=== PATIENT | female | born 1955 | race Caucasian/White ===

== ENCOUNTER → 2019-11-17 | Outpatient (CLI) | payer OTHER | END | disposition home or self-care (01) | LOC: RAH 09:17 | PROVIDERS: ATTEND Family Medicine | DX: N60.02 Solitary cyst of left breast (principal); N60.01 Solitary cyst of right breast; R92.8 Other abnormal and inconclusive findings on diagnostic imaging of breast | CPT/HCPCS: 76641; 77065 ==

== ENCOUNTER → 2020-12-03 | Outpatient (CLI) | payer OTHER | END | disposition home or self-care (01) | LOC: RAH 08:31 | PROVIDERS: ATTEND Family Medicine | DX: Z12.31 Encounter for screening mammogram for malignant neoplasm of breast (principal); N64.89 Other specified disorders of breast | CPT/HCPCS: 77067 ==

== ENCOUNTER 2024-07-05 06:04 | Day surgery (SDC) | payer OTHER ==
[2024-07-01 09:21] VITALS: BP 135/76; PULSE 80; RESP 18; TEMP 97.9
[2024-07-01 09:49] LABS: BASOPHILS # (AUTO) 0.21 K/uL (0.00-0.20); BASOPHILS % (AUTO) 2.5 % (0.0-5.0); EOSINOPHILS # (AUTO) 0.26 K/uL (0.00-0.70); EOSINOPHILS % (AUTO) 3.1 % (0.0-8.0); HEMATOCRIT 45.7 % (36-48); IMMATURE GRANULOCYTE ABSOLUTE 0.06 K/uL (0-1); LYMPHOCYTES # (AUTO) 1.2 K/uL (1.0-4.8); LYMPHOCYTES % (AUTO) 14.4 % (21.0-51.0); MEAN CORPUSCULAR HGB CONC 32.6 g/dL (32.0-36.0); MEAN CORPUSCULAR VOLUME 98.3 fL (79-99); MONOCYTES # (AUTO) 0.8 K/uL (0.1-1.0); MONOCYTES % (AUTO) 9.7 % (3.0-13.0); NEUTROPHILS # (AUTO) 5.8 K/uL (1.8-7.7); NEUTROPHILS % (AUTO) 69.6 % (40.0-77.0); PLATELET COUNT (AUTO) 372 K/uL (130-400); RED BLOOD CELL COUNT(AUTO) 4.65 MIL/uL (4.00-5.50); RED CELL DISTRIBUTION WIDTH 15.3 % (11.0-15.5); WHITE BLOOD COUNT (AUTO) 8.4 K/uL (4.8-10.8)
[2024-07-01 09:57] LABS: CREATININE 1.8 mg/dL (0.5-1.0); POTASSIUM 5.5 mmol/L (3.5-5.1)
[2024-07-01 09:59] LABS: INR 0.94 (0.85-1.15); PROTHROMBIN TIME 10.2 SEC (9.6-11.6)
[2024-07-01 10:00] LABS: PARTIAL THROMBOPLASTIN TIME 30.9 SEC (26.3-35.5)
[~2024-07-05] VITALS: Ht 161.3 cm; Wt 54.9 kg
[~2024-07-05 06:04] MED LIST: ACET-2079 PO; ALEN70TA80 PO; AMIO200T68 PO; AMLO-258 PO; APIX5TAB PO; ERGO500093 PO; FOLI1TAB85 PO; METO50TA18 PO; MUPI22OI2 TP; PROC-3 PO; PROP1DRO4 OP; VIT1CAPS47 PO
[2024-07-05] MEDS ORDERED: 0.9%NACL 1000ML 1,000 ML IV ONE (06:16)
[2024-07-05 06:33] LABS: CREATININE 2.3 mg/dL (0.5-1.0); POTASSIUM 5.6 mmol/L (3.5-5.1)
[2024-07-05] MEDS ORDERED: BUPIvacaine/PF 0.25% 30ML VIAL IJ ONE (07:12)
[2024-07-05] MEDS ORDERED: ceFAZolin SODIUM 1 GM VIAL ONE (07:12)
[2024-07-05] MEDS ORDERED: LIDOCAINE HCL 1% MDV 50ML VIAL ONE (07:12)
== END 2024-07-05 07:37 | disposition home or self-care (01) ==
LOC: DAH 06:04
PROVIDERS: ATTEND Student in an Organized Health Care Education/Training Program
DX: Z45.02 Encounter for adjustment and management of automatic implantable cardiac defibrillator (principal); I42.2 Other hypertrophic cardiomyopathy; I48.0 Paroxysmal atrial fibrillation; I10 Essential (primary) hypertension; E78.5 Hyperlipidemia, unspecified; Z79.01 Long term (current) use of anticoagulants; Z79.899 Other long term (current) drug therapy; Z53.8 Procedure and treatment not carried out for other reasons
CPT/HCPCS: 93005; 80048 ×2; 85025; 85610; 85730; 36415 ×2; J7030; J0690; J3490; J0665

== ENCOUNTER 2024-07-05 07:44 | Inpatient (IN) | payer OTHER ==
[2024-07-05] VITALS (7 sets, daily range): BP systolic 91–102; BP diastolic 43–51; PULSE 60–67; RESP 18; TEMP 97.8–98.5; O2SAT 91–98
[~2024-07-05] VITALS: Ht 160 cm; Wt 55.5 kg
[2024-07-05 08:26] LABS: BASOPHILS # (AUTO) 0.09 K/uL (0.00-0.20); BASOPHILS % (AUTO) 0.6 % (0.0-5.0); EOSINOPHILS # (AUTO) 0.19 K/uL (0.00-0.70); EOSINOPHILS % (AUTO) 1.2 % (0.0-8.0); HEMATOCRIT 40.3 % (36-48); IMMATURE GRANULOCYTE ABSOLUTE 0.09 K/uL (0-1); LYMPHOCYTES # (AUTO) 0.8 K/uL (1.0-4.8); LYMPHOCYTES % (AUTO) 5.1 % (21.0-51.0); MEAN CORPUSCULAR VOLUME 94.2 fL (79-99); MONOCYTES % (AUTO) 6.7 % (3.0-13.0); NEUTROPHILS # (AUTO) 13.1 K/uL (1.8-7.7); NEUTROPHILS % (AUTO) 85.8 % (40.0-77.0); PLATELET COUNT (AUTO) 328 K/uL (130-400); RED BLOOD CELL COUNT(AUTO) 4.28 MIL/uL (4.00-5.50); RED CELL DISTRIBUTION WIDTH 15.1 % (11.0-15.5); WHITE BLOOD COUNT (AUTO) 15.2 K/uL (4.8-10.8)
[2024-07-05 08:28] LABS: SODIUM,URINE RANDOM 21 mmol/l (40-220)
[2024-07-05 08:29] LABS: CREATININE 2.2 mg/dL (0.5-1.0); POTASSIUM 5.4 mmol/L (3.5-5.1)
[2024-07-05] MEDS: kayEXALate 15GM/60ML PO NR (08:42)
[2024-07-05] MEDS: 0.9%NACL 1000ML 1,000 ML IV ONE (08:43)
[2024-07-05 08:45] LABS: APPEARANCE,URINE CLEAR (CLEAR); BILIRUBIN,URINE NEGATIVE (NEGATIVE); COLOR,URINE LIGHT-YELLOW (YELLOW); GLUCOSE, URINE (UA) NEGATIVE (NEGATIVE); KETONES,URINE NEGATIVE (NEGATIVE); LEUKOCYTE ESTERASE ,URINE NEGATIVE Leu/uL (NEGATIVE); NITRATE,URINE NEGATIVE (NEGATIVE); OCCULT BLOOD,URINE NEGATIVE (NEGATIVE); PH,URINE 6.5 (5.0-8.0); PROTEIN,URINE 30 mg/dL (NEGATIVE); RBC,URINE 0-1 /HPF (0-1); SQUAMOUS EPITHELIAL CELL,UR RARE /HPF (0-2); UROBILINOGEN,URINE 0.2 mg/dL (0.2-1.0); WBC,URINE 0-1 /HPF (0-1)
[2024-07-05] MEDS: INSULIN humuLIN R 100 UNIT/ML 3ML IV ONE (08:46)
[2024-07-05] MEDS: DEXTROSE 50%-WATER 50 ML DISP.SYRIN IV ONE (08:51)
[2024-07-05] MEDS: ALBUTEROL 0.083% 2.5 MG/3 ML INH IH SCH (08:58)
[2024-07-05] MEDS ORDERED: DEXTROSE 50%-WATER 25 GM/50 ML VIAL IV ONE (09:00)
[2024-07-05] MEDS ORDERED: ondanSETRON 4MG INJ IVP PRN (12:30)
[2024-07-05] MEDS: ondanSETRON 4MG INJ IVP ONE (12:37)
[2024-07-05] MEDS: 0.9%NACL 1000ML 1,000 ML IV SCH (16:00)
[2024-07-05] MEDS ORDERED: Prochlorperazine Maleate 10 MG PO PRN (16:00)
[2024-07-05] MEDS ORDERED: ARTIFICAL TEARS SOL 15 ML OP PRN (16:00)
[2024-07-05 19:38] LABS: APPEARANCE,URINE CLEAR (CLEAR); BILIRUBIN,URINE NEGATIVE (NEGATIVE); COLOR,URINE YELLOW (YELLOW); GLUCOSE, URINE (UA) NEGATIVE (NEGATIVE); KETONES,URINE NEGATIVE (NEGATIVE); LEUKOCYTE ESTERASE ,URINE 25 Leu/uL (NEGATIVE); NITRATE,URINE NEGATIVE (NEGATIVE); OCCULT BLOOD,URINE NEGATIVE (NEGATIVE); PROTEIN,URINE 30 mg/dL (NEGATIVE); UROBILINOGEN,URINE 0.2 mg/dL (0.2-1.0)
[2024-07-05 19:39] LABS: ADD UA MICROSCOPIC YES
[2024-07-05 19:41] LABS: CHLORIDE,URINE RANDOM 34 mmol/L (110-250); CREATININE,URINE RANDOM 189.47 mg/dL (30-135); POTASSIUM,URINE RANDOM 40 mmol/L (25-125); SODIUM,URINE RANDOM 47 mmol/l (40-220)
[2024-07-05 19:51] LABS: BACTERIA,URINE RARE /HPF (None Seen); MUCUS,URINE RARE LPF (None Seen); OTHER CASTS, URINE 1 /LPF (None Seen); SQUAMOUS EPITHELIAL CELL,UR FEW /HPF (0-2)
[2024-07-05] MEDS: APIXaban 5 MG TABLET PO SCH (19:59)
[2024-07-05] MEDS: MUPIROCIN OINTMENT 22 GM TUBE TP SCH (19:59)
[2024-07-05] MEDS: AMIOdarone 200 MG TABLET PO SCH (19:59)
[2024-07-05] MEDS: 0.9% NACL 500ML IV.SOLN 500 ML IV SCH (22:08)
[2024-07-05] MEDS: cefTRIAXone 1G VIAL IVPB SCH (22:09)
[2024-07-05] MEDS: traMADol HCL 50 MG TABLET PO ONE (22:09)
[2024-07-05] MEDS: DiphenhydrAMINE HCL 25 MG CAPSULE PO ONE (22:59)
[2024-07-06] VITALS (17 sets, daily range): BP systolic 103–133; BP diastolic 49–60; PULSE 60–83; RESP 18–22; TEMP 97.5–98.6; O2SAT 92–96
[2024-07-06 03:33] LABS: BASOPHILS # (AUTO) 0.05 K/uL (0.00-0.20); BASOPHILS % (AUTO) 0.5 % (0.0-5.0); EOSINOPHILS # (AUTO) 0.12 K/uL (0.00-0.70); EOSINOPHILS % (AUTO) 1.1 % (0.0-8.0); HEMATOCRIT 32.9 % (36-48); IMMATURE GRANULOCYTE ABSOLUTE 0.05 K/uL (0-1); LYMPHOCYTES # (AUTO) 0.9 K/uL (1.0-4.8); LYMPHOCYTES % (AUTO) 8.7 % (21.0-51.0); MEAN CORPUSCULAR HEMOGLOBIN 31.8 pg (27.0-33.0); MEAN CORPUSCULAR HGB CONC 33.1 g/dL (32.0-36.0); MEAN CORPUSCULAR VOLUME 95.9 fL (79-99); MONOCYTES # (AUTO) 1.1 K/uL (0.1-1.0); MONOCYTES % (AUTO) 10.4 % (3.0-13.0); NEUTROPHILS # (AUTO) 8.4 K/uL (1.8-7.7); NEUTROPHILS % (AUTO) 78.8 % (40.0-77.0); PLATELET COUNT (AUTO) 251 K/uL (130-400); RED BLOOD CELL COUNT(AUTO) 3.43 MIL/uL (4.00-5.50); RED CELL DISTRIBUTION WIDTH 15.4 % (11.0-15.5); WHITE BLOOD COUNT (AUTO) 10.6 K/uL (4.8-10.8)
[2024-07-06 03:35] LABS: ABG BASE EXCESS -5.7 mmol/L (-2.0-3.0); ABG HCO3 19.2 mmol/L (21.0-28.0); ABG PCO2 35 mmHg (32-45); ABG PH 7.355 (7.350-7.450); CARBON MONOXIDE 0.3 % (0.5-1.5); DEVICE COMMENT RR; HHb 11.9; PO2, ARTERIAL BG 53.4 mmHg (83.0-108.0); VENT MODE, BG VENTI MASK (ROOM AIR)
[2024-07-06 03:46] LABS: ALBUMIN 2.7 g/dL (3.5-5.0); BILIRUBIN,TOTAL 0.2 mg/dL (0.2-1.0); CREATININE 1.7 mg/dL (0.5-1.0); MAGNESIUM 1.6 mg/dL (1.80-2.40); PHOSPHORUS 3.3 mg/dL (2.5-4.9); POTASSIUM 3.6 mmol/L (3.5-5.1); TOTAL PROTEIN, SERUM 5.9 g/dL (6.0-8.3); URIC ACID 6.9 mg/dL (2.6-7.2)
[2024-07-06] MEDS: IpraTROPium/alBUTERol SULFATE 3 ML SOLUTION IH PRN (04:00)
[2024-07-06] MEDS ORDERED: traMADol HCL 50 MG TABLET PO ONE (04:00)
[2024-07-06] MEDS: morPHINE 2 MG SYG IVP ONE (04:00)
[2024-07-06] MEDS: NITROGLYCERIN 0.4 MG SL TAB SL PRN (04:01)
[2024-07-06] MEDS: guaiFENesin-DM 200/20MG 10ML PO PRN (04:01)
[2024-07-06] MEDS: MAGNESIUM 2GM PREMIX 50ML 50 ML IV SCH (04:02)
[2024-07-06] MEDS: Vitamin B Complex/Vit C/Folic Acid PO SCH (10:23)
[2024-07-06] MEDS: MUPIROCIN OINTMENT 22 GM TUBE TP SCH (10:27)
[2024-07-07] VITALS (13 sets, daily range): BP systolic 111–132; BP diastolic 49–66; PULSE 65–109; RESP 18–22; TEMP 97.4–98.7; O2SAT 88–93
[2024-07-07 05:15] LABS: HEMATOCRIT 31.9 % (36-48); MEAN CORPUSCULAR HGB CONC 32.9 g/dL (32.0-36.0); MEAN CORPUSCULAR VOLUME 97.3 fL (79-99); PLATELET COUNT (AUTO) 223 K/uL (130-400); RED BLOOD CELL COUNT(AUTO) 3.28 MIL/uL (4.00-5.50); RED CELL DISTRIBUTION WIDTH 15.2 % (11.0-15.5); WHITE BLOOD COUNT (AUTO) 18.9 K/uL (4.8-10.8)
[2024-07-07 05:46] LABS: ALBUMIN 2.5 g/dL (3.5-5.0); BILIRUBIN,TOTAL 0.4 mg/dL (0.2-1.0); CREATININE 1.6 mg/dL (0.5-1.0); PHOSPHORUS 3.2 mg/dL (2.5-4.9); POTASSIUM 3.9 mmol/L (3.5-5.1); THYROID STIMULATING HORMONE 0.82 uIU/mL (0.36-3.74); URIC ACID 6.5 mg/dL (2.6-7.2)
[2024-07-07 06:05] LABS: LYMPHOCYTES % (MANUAL) 6 % (22-44); MAN.DIFF COMMENT-IMPRESSION MANUAL DIFFERENTIAL; MONOCYTES % (MANUAL) 7 % (2-9); PLATELET MORPHOLOGY COMMENT ADEQUATE; SEGMENTED NEUTROPHILS % 87 % (40-70); TOTAL CELLS COUNTED 100
[2024-07-07 10:19] LABS: ABG HCO3 22.1 mmol/L (21.0-28.0); ABG OXYGEN SATURATION 90.4 % (94.0-98.0); ABG PCO2 32 mmHg (32-45); ABG PH 7.459 (7.350-7.450); CARBON MONOXIDE 0.5 % (0.5-1.5); HHb 9.5; VENT MODE, BG 5L NC (ROOM AIR)
[2024-07-07] MEDS ORDERED: RENAL DOSE IV PRN (12:30)
[2024-07-07 13:02] LABS: RAPID GROUP A STREP negative (NEGATIVE)
[2024-07-07 13:06] LABS: COVID19 (SARS ANTIGEN RAPID) PRESUMPTIVE NEGATIVE (NEGATIVE); INFLUENZA TYPE A Negative For Type A (NEGATIVE); INFLUENZA TYPE B Negative For Type B (NEGATIVE)
[2024-07-07] MEDS: CEFTRIAXONE 2GM VIAL IVPB SCH (13:10)
[2024-07-07] MEDS: DOXYCYCLINE 100MG+NS 250ML 250 ML IV SCH (13:11)
[2024-07-07] MEDS: furoSEMIDE 20MG VIAL IV SCH (13:14)
[2024-07-07] MEDS ORDERED: SODIUM BICARBONATE 650 MG TAB PO SCH (14:00)
[2024-07-07] MEDS: SODIUM CHLORIDE 3% FOR INHALATION 4 ML/AMP VIAL.NEB IH ONE ×3 (14:43→22:44)
[2024-07-07] MEDS ORDERED: traMADol HCL 50 MG TABLET PO SCH (17:30)
[2024-07-07] MEDS: acetaMINOPHEN WITH coDEINE 1 TAB TAB PO PRN (18:02)
[2024-07-07 18:42] LABS: HEPATITIS A IGM ANTIBODY Non-Reactive (Nonreactive); HEPATITIS B CORE IGM ANTIBODY Non-Reactive (Negative); HEPATITIS B SURFACE ANTIGEN Non-Reactive (Nonreactive); HEPATITIS C ANTIBODY Non-Reactive (Nonreactive)
[2024-07-07] MEDS: acetaMINOPHEN 325 MG TAB PO PRN (21:14)
[2024-07-07] MEDS: metRONIDazole 500MG/100ML BAG 100 ML IVPB SCH (23:47)
[2024-07-08] VITALS (10 sets, daily range): BP systolic 97–126; BP diastolic 49–63; PULSE 66–78; RESP 16–20; TEMP 97.9–98.4; O2SAT 92–93
[2024-07-08 05:29] LABS: HEMATOCRIT 29.8 % (36-48); MEAN CORPUSCULAR HEMOGLOBIN 32.1 pg (27.0-33.0); MEAN CORPUSCULAR HGB CONC 33.6 g/dL (32.0-36.0); MEAN CORPUSCULAR VOLUME 95.5 fL (79-99); RED BLOOD CELL COUNT(AUTO) 3.12 MIL/uL (4.00-5.50); RED CELL DISTRIBUTION WIDTH 15.2 % (11.0-15.5); WHITE BLOOD COUNT (AUTO) 17.2 K/uL (4.8-10.8)
[2024-07-08 06:22] LABS: CREATININE 1.5 mg/dL (0.5-1.0); POTASSIUM 3.6 mmol/L (3.5-5.1)
[2024-07-08] MEDS: NICOTINE 14 MG/ 24 HR PATCH TD SCH (08:33)
[2024-07-08] MEDS: monteLUKAST sodIUM 10 MG TAB PO SCH (08:33)
[2024-07-08] MEDS: furoSEMIDE 40MG VIAL IV SCH (08:34)
[2024-07-08 10:33] LABS: MAGNESIUM 1.6 mg/dL (1.80-2.40); PHOSPHORUS 3.4 mg/dL (2.5-4.9)
[2024-07-08] MEDS: PoTASSium chloRIDE 20MEQ ER 20 MEQ ERTAB PO ONE (14:42)
[2024-07-09] VITALS (14 sets, daily range): BP systolic 107–136; BP diastolic 52–67; PULSE 63–74; RESP 16–22; TEMP 98–98.8; O2SAT 92–94
[2024-07-09 04:34] LABS: HEMATOCRIT 28.9 % (36-48); MEAN CORPUSCULAR HEMOGLOBIN 31.8 pg (27.0-33.0); MEAN CORPUSCULAR HGB CONC 34.3 g/dL (32.0-36.0); MEAN CORPUSCULAR VOLUME 92.9 fL (79-99); RED BLOOD CELL COUNT(AUTO) 3.11 MIL/uL (4.00-5.50); RED CELL DISTRIBUTION WIDTH 14.8 % (11.0-15.5); WHITE BLOOD COUNT (AUTO) 12.7 K/uL (4.8-10.8)
[2024-07-09 05:12] LABS: ALBUMIN 2.3 g/dL (3.5-5.0); BILIRUBIN,TOTAL 0.4 mg/dL (0.2-1.0); CREATININE 1.6 mg/dL (0.5-1.0); MAGNESIUM 1.8 mg/dL (1.80-2.40); POTASSIUM 3.6 mmol/L (3.5-5.1)
[2024-07-09] MEDS: levoFLOXacin 250 MG/D5W 50ML 50 ML IVPB SCH (14:37)
[2024-07-09] MEDS: IpraTROPium/alBUTERol SULFATE 3 ML SOLUTION IH SCH (18:45)
[2024-07-09] MEDS ORDERED: IpraTROPium 0.5 MG/2.5 ML INH IH PRN (23:00)
[2024-07-09] MEDS: DOXYCYCLINE 100MG+NS 250ML 0 ML IV ONE (23:12)
[2024-07-10] VITALS (9 sets, daily range): BP systolic 120–142; BP diastolic 60–81; PULSE 63–77; RESP 16–20; TEMP 97.9–98.7; O2SAT 94–95
[2024-07-10 04:11] LABS: HEMATOCRIT 32.6 % (36-48); MEAN CORPUSCULAR HEMOGLOBIN 31.7 pg (27.0-33.0); MEAN CORPUSCULAR HGB CONC 33.7 g/dL (32.0-36.0); MEAN CORPUSCULAR VOLUME 93.9 fL (79-99); PLATELET COUNT (AUTO) 315 K/uL (130-400); RED BLOOD CELL COUNT(AUTO) 3.47 MIL/uL (4.00-5.50); WHITE BLOOD COUNT (AUTO) 10.1 K/uL (4.8-10.8)
[2024-07-10 04:27] LABS: ALBUMIN 2.5 g/dL (3.5-5.0); BILIRUBIN,TOTAL 0.5 mg/dL (0.2-1.0); CREATININE 1.7 mg/dL (0.5-1.0); MAGNESIUM 2.1 mg/dL (1.80-2.40); POTASSIUM 3.5 mmol/L (3.5-5.1); TOTAL PROTEIN, SERUM 6.6 g/dL (6.0-8.3)
[2024-07-10 05:11] LABS: BASOPHILS % (MANUAL) 1 % (0-2); EOSINOPHILS % (MANUAL) 3 % (1-6); LYMPHOCYTES % (MANUAL) 14 % (22-44); MAN.DIFF COMMENT-IMPRESSION MANUAL DIFFERENTIAL; MONOCYTES % (MANUAL) 16 % (2-9); PLATELET MORPHOLOGY COMMENT ADEQUATE; SEGMENTED NEUTROPHILS % 66 % (40-70); TOTAL CELLS COUNTED 100; WBC MORPHOLOGY SMUDGE CELLS 1+
[2024-07-10] MEDS: FOLic ACID 1 MG TABLET PO SCH (10:12)
[2024-07-10] MEDS: THIAMINE HCL 100 MG/ML 2ML VIAL IVP SCH (10:13)
[2024-07-10] MEDS: furoSEMIDE 40MG VIAL IV SCH (22:00)
[2024-07-11] VITALS (10 sets, daily range): BP systolic 131–154; BP diastolic 63–82; PULSE 56–88; RESP 16–20; TEMP 97.7–98.9; O2SAT 94–96
[2024-07-11 03:52] LABS: BASOPHILS # (AUTO) 0.11 K/uL (0.00-0.20); EOSINOPHILS # (AUTO) 0.41 K/uL (0.00-0.70); EOSINOPHILS % (AUTO) 3.6 % (0.0-8.0); HEMATOCRIT 34.6 % (36-48); IMMATURE GRANULOCYTE ABSOLUTE 0.14 K/uL (0-1); LYMPHOCYTES % (AUTO) 8.9 % (21.0-51.0); MEAN CORPUSCULAR HEMOGLOBIN 31.4 pg (27.0-33.0); MEAN CORPUSCULAR HGB CONC 33.8 g/dL (32.0-36.0); MEAN CORPUSCULAR VOLUME 92.8 fL (79-99); MONOCYTES # (AUTO) 1.5 K/uL (0.1-1.0); MONOCYTES % (AUTO) 13.2 % (3.0-13.0); NEUTROPHILS # (AUTO) 8.1 K/uL (1.8-7.7); NEUTROPHILS % (AUTO) 72.1 % (40.0-77.0); PLATELET COUNT (AUTO) 360 K/uL (130-400); RED BLOOD CELL COUNT(AUTO) 3.73 MIL/uL (4.00-5.50); RED CELL DISTRIBUTION WIDTH 14.8 % (11.0-15.5); WHITE BLOOD COUNT (AUTO) 11.3 K/uL (4.8-10.8)
[2024-07-11 04:18] LABS: ALBUMIN 2.6 g/dL (3.5-5.0); BILIRUBIN,TOTAL 0.4 mg/dL (0.2-1.0); CREATININE 1.7 mg/dL (0.5-1.0); MAGNESIUM 1.6 mg/dL (1.80-2.40); POTASSIUM 3.4 mmol/L (3.5-5.1); TOTAL PROTEIN, SERUM 6.8 g/dL (6.0-8.3)
[2024-07-11] MEDS ORDERED: PoTASSium chloRIDE 20MEQ ER 20 MEQ ERTAB PO PRN (13:00)
[2024-07-11] MEDS ORDERED: PoTASSium chl 10% ELIXIR 20MEQ 20 MEQ/15 ML UDCUP PO PRN (13:00)
[2024-07-11] MEDS ORDERED: PoTASSium chloRIDE 20MEQ/100ML 100 ML IV PRN (13:00)
[2024-07-11] MEDS: Solu-medROL 40MG VIAL IVP SCH (15:47)
[2024-07-11] MEDS: furoSEMIDE 20MG VIAL IV SCH (22:27)
[2024-07-12] VITALS (13 sets, daily range): BP systolic 117–147; BP diastolic 60–87; PULSE 63–88; RESP 18–24; TEMP 97.2–98.6; O2SAT 94–97
[2024-07-12 03:38] LABS: BASOPHILS # (AUTO) 0.06 K/uL (0.00-0.20); BASOPHILS % (AUTO) 0.5 % (0.0-5.0); EOSINOPHILS # (AUTO) 0.01 K/uL (0.00-0.70); EOSINOPHILS % (AUTO) 0.1 % (0.0-8.0); HEMATOCRIT 35.5 % (36-48); IMMATURE GRANULOCYTE ABSOLUTE 0.25 K/uL (0-1); LYMPHOCYTES # (AUTO) 0.6 K/uL (1.0-4.8); LYMPHOCYTES % (AUTO) 5.3 % (21.0-51.0); MEAN CORPUSCULAR HEMOGLOBIN 31.4 pg (27.0-33.0); MEAN CORPUSCULAR HGB CONC 34.1 g/dL (32.0-36.0); MEAN CORPUSCULAR VOLUME 92.2 fL (79-99); MONOCYTES # (AUTO) 0.2 K/uL (0.1-1.0); NEUTROPHILS # (AUTO) 10.8 K/uL (1.8-7.7); PLATELET COUNT (AUTO) 399 K/uL (130-400); RED BLOOD CELL COUNT(AUTO) 3.85 MIL/uL (4.00-5.50)
[2024-07-12 03:55] LABS: ALANINE AMINOTRANSFERASE 36 U/L (12-78); ALBUMIN 2.7 g/dL (3.5-5.0); ASPARTATE AMINOTRANSFERASE 22 U/L (10-37); BILIRUBIN,TOTAL 0.4 mg/dL (0.2-1.0); CARBON DIOXIDE 31 mmol/L (21-32); CHLORIDE 95 mmol/L (101-111); CREATININE 2.1 mg/dL (0.5-1.0); GLOMERULAR FILTR. RATE CALC 25 mL/min (>90); GLUCOSE,RANDOM 139 mg/dL (70-105); PHOSPHORUS 5.4 mg/dL (2.5-4.9); POTASSIUM 4.2 mmol/L (3.5-5.1); SODIUM SERUM 134 mmol/L (136-145); UREA NITROGEN, BLOOD 38 mg/dL (7-18)
[2024-07-12 03:58] LABS: AMMONIA < 10 umol/L (11-32)
[2024-07-12] MEDS: IpraTROPium 0.5 MG/2.5 ML INH IH SCH (13:23)
[2024-07-12] MEDS: Solu-medROL 40MG VIAL IVP SCH (20:57)
[2024-07-13] VITALS (17 sets, daily range): BP systolic 102–153; BP diastolic 55–68; PULSE 44–101; RESP 16–20; TEMP 97.8–98.8; O2SAT 93–96
[2024-07-13] MEDS: LORazepam 2 MG/ML 1 ML VIAL IVP STA (00:45)
[2024-07-13] MEDS ORDERED: ALPRAZolam 0.5 MG TABLET PO ONE (01:00)
[2024-07-13 01:02] LABS: ABG BASE EXCESS 3.7 mmol/L (-2.0-3.0); ABG HCO3 21.3 mmol/L (21.0-28.0); ABG OXYGEN SATURATION 96.8 % (94.0-98.0); ABG PCO2 18 mmHg (32-45); ABG PH > 7.700 (7.350-7.450); CARBON MONOXIDE 0.4 % (0.5-1.5); DEVICE COMMENT LR RN; HHb 3.2; PO2, ARTERIAL BG 73.2 mmHg (83.0-108.0); VENT MODE, BG RA (ROOM AIR)
[2024-07-13] MEDS: LORazepam 2 MG/ML 1 ML VIAL ONE (01:11)
[2024-07-13] MEDS ORDERED: NICOTINE 14 MG/ 24 HR PATCH TD SCH ×2 (01:30)
[2024-07-13] MEDS: furoSEMIDE 20MG VIAL IV ONE (02:09)
[2024-07-13 03:41] LABS: BASOPHILS # (AUTO) 0.02 K/uL (0.00-0.20); BASOPHILS % (AUTO) 0.1 % (0.0-5.0); HEMATOCRIT 33.7 % (36-48); IMMATURE GRANULOCYTE ABSOLUTE 0.64 K/uL (0-1); LYMPHOCYTES # (AUTO) 0.6 K/uL (1.0-4.8); LYMPHOCYTES % (AUTO) 3.3 % (21.0-51.0); MEAN CORPUSCULAR HEMOGLOBIN 31.8 pg (27.0-33.0); MEAN CORPUSCULAR HGB CONC 33.5 g/dL (32.0-36.0); MEAN CORPUSCULAR VOLUME 94.9 fL (79-99); MONOCYTES # (AUTO) 0.9 K/uL (0.1-1.0); MONOCYTES % (AUTO) 4.8 % (3.0-13.0); NEUTROPHILS # (AUTO) 15.6 K/uL (1.8-7.7); NEUTROPHILS % (AUTO) 88.2 % (40.0-77.0); PLATELET COUNT (AUTO) 415 K/uL (130-400); RED BLOOD CELL COUNT(AUTO) 3.55 MIL/uL (4.00-5.50); RED CELL DISTRIBUTION WIDTH 14.8 % (11.0-15.5); WHITE BLOOD COUNT (AUTO) 17.7 K/uL (4.8-10.8)
[2024-07-13 04:05] LABS: ALBUMIN 2.8 g/dL (3.5-5.0); BILIRUBIN,TOTAL 0.4 mg/dL (0.2-1.0); MAGNESIUM 2.1 mg/dL (1.80-2.40); POTASSIUM 3.5 mmol/L (3.5-5.1); TOTAL PROTEIN, SERUM 6.6 g/dL (6.0-8.3)
[2024-07-13 13:16] LABS: ABG BASE EXCESS 0.8 mmol/L (-2.0-3.0); ABG HCO3 24.5 mmol/L (21.0-28.0); ABG PCO2 36 mmHg (32-45); ABG PH 7.452 (7.350-7.450); CARBON MONOXIDE 0.3 % (0.5-1.5); DEVICE COMMENT RB SJ RN; PO2, ARTERIAL BG 66.3 mmHg (83.0-108.0); VENT MODE, BG RA (ROOM AIR)
[2024-07-13] MEDS: LACTATED RINGERS 1000ML 1,000 ML IV SCH (13:30)
[2024-07-13] MEDS: diazePAM 5 MG TAB PO SCH (23:24)
[2024-07-14] VITALS (15 sets, daily range): BP systolic 119–139; BP diastolic 62–78; PULSE 60–78; RESP 16–22; TEMP 97.8–98.8; O2SAT 95–98
[2024-07-14] MEDS: diazePAM 5 MG TAB PO PRN (02:54)
[2024-07-14 03:55] LABS: BASOPHILS # (AUTO) 0.04 K/uL (0.00-0.20); BASOPHILS % (AUTO) 0.2 % (0.0-5.0); HEMATOCRIT 32.5 % (36-48); IMMATURE GRANULOCYTE ABSOLUTE 0.73 K/uL (0-1); LYMPHOCYTES % (AUTO) 5.2 % (21.0-51.0); MEAN CORPUSCULAR HEMOGLOBIN 31.6 pg (27.0-33.0); MEAN CORPUSCULAR HGB CONC 33.5 g/dL (32.0-36.0); MEAN CORPUSCULAR VOLUME 94.2 fL (79-99); MONOCYTES # (AUTO) 1.6 K/uL (0.1-1.0); NEUTROPHILS # (AUTO) 16.6 K/uL (1.8-7.7); NEUTROPHILS % (AUTO) 82.9 % (40.0-77.0); PLATELET COUNT (AUTO) 418 K/uL (130-400); RED BLOOD CELL COUNT(AUTO) 3.45 MIL/uL (4.00-5.50); RED CELL DISTRIBUTION WIDTH 15.1 % (11.0-15.5)
[2024-07-14 04:07] LABS: CREATININE 2.4 mg/dL (0.5-1.0)
[2024-07-14] MEDS: LACTULOSE 20 GM/30 ML UDCUP PO PRN (11:57)
[2024-07-15] VITALS (13 sets, daily range): BP systolic 122–151; BP diastolic 57–70; PULSE 63–94; RESP 18–20; TEMP 97.3–98.6; O2SAT 94–97
[2024-07-15 05:08] LABS: BASOPHILS # (AUTO) 0.07 K/uL (0.00-0.20); BASOPHILS % (AUTO) 0.3 % (0.0-5.0); HEMATOCRIT 32.4 % (36-48); IMMATURE GRANULOCYTE ABSOLUTE 0.89 K/uL (0-1); LYMPHOCYTES % (AUTO) 4.5 % (21.0-51.0); MEAN CORPUSCULAR HEMOGLOBIN 31.1 pg (27.0-33.0); MEAN CORPUSCULAR HGB CONC 33.3 g/dL (32.0-36.0); MEAN CORPUSCULAR VOLUME 93.4 fL (79-99); MONOCYTES # (AUTO) 1.9 K/uL (0.1-1.0); NEUTROPHILS # (AUTO) 17.7 K/uL (1.8-7.7); NEUTROPHILS % (AUTO) 82.1 % (40.0-77.0); PLATELET COUNT (AUTO) 463 K/uL (130-400); RED BLOOD CELL COUNT(AUTO) 3.47 MIL/uL (4.00-5.50); RED CELL DISTRIBUTION WIDTH 15.1 % (11.0-15.5); WHITE BLOOD COUNT (AUTO) 21.5 K/uL (4.8-10.8)
[2024-07-15 05:33] LABS: MAGNESIUM 2.1 mg/dL (1.80-2.40); PHOSPHORUS 3.8 mg/dL (2.5-4.9); POTASSIUM 4.1 mmol/L (3.5-5.1)
[2024-07-15] MEDS: 0.9%NACL 1000ML 1,000 ML IV SCH (12:16)
[2024-07-15] MEDS: DOXYCYCLINE HYCLATE 100 MG TABLET PO SCH (12:16)
[2024-07-15] MEDS ORDERED: PHARMACY COMMUNICATION MISC SCH (16:30)
[2024-07-15 17:30] LABS: ABG BASE EXCESS 0.9 mmol/L (-2.0-3.0); ABG OXYGEN SATURATION 95.7 % (94.0-98.0); ABG PCO2 34 mmHg (32-45); ABG PH 7.466 (7.350-7.450); DEVICE COMMENT RN MARTA; PO2, ARTERIAL BG 73.5 mmHg (83.0-108.0)
[2024-07-15] MEDS: APIXaban 2.5 MG TABLET PO SCH (22:50)
[2024-07-16] VITALS (13 sets, daily range): BP systolic 130–166; BP diastolic 61–81; PULSE 62–72; RESP 18–22; TEMP 97.5–98.4; O2SAT 94–98
[2024-07-16 04:03] LABS: BASOPHILS # (AUTO) 0.12 K/uL (0.00-0.20); BASOPHILS % (AUTO) 0.7 % (0.0-5.0); EOSINOPHILS # (AUTO) 0.18 K/uL (0.00-0.70); HEMATOCRIT 36.7 % (36-48); IMMATURE GRANULOCYTE ABSOLUTE 1.01 K/uL (0-1); LYMPHOCYTES # (AUTO) 1.9 K/uL (1.0-4.8); LYMPHOCYTES % (AUTO) 10.7 % (21.0-51.0); MEAN CORPUSCULAR HEMOGLOBIN 31.5 pg (27.0-33.0); MEAN CORPUSCULAR HGB CONC 33.5 g/dL (32.0-36.0); MEAN CORPUSCULAR VOLUME 94.1 fL (79-99); MONOCYTES % (AUTO) 11.1 % (3.0-13.0); NEUTROPHILS # (AUTO) 12.8 K/uL (1.8-7.7); NEUTROPHILS % (AUTO) 70.9 % (40.0-77.0); PLATELET COUNT (AUTO) 477 K/uL (130-400); RED CELL DISTRIBUTION WIDTH 15.2 % (11.0-15.5); WHITE BLOOD COUNT (AUTO) 18.1 K/uL (4.8-10.8)
[2024-07-16 04:15] LABS: CREATININE 1.6 mg/dL (0.5-1.0); POTASSIUM 4.6 mmol/L (3.5-5.1)
[2024-07-17] VITALS (7 sets, daily range): BP systolic 130–150; BP diastolic 62–82; PULSE 62–69; RESP 18–20; TEMP 97.6–98.8; O2SAT 95–98
[2024-07-17 03:55] LABS: BASOPHILS # (AUTO) 0.12 K/uL (0.00-0.20); BASOPHILS % (AUTO) 0.7 % (0.0-5.0); EOSINOPHILS # (AUTO) 0.47 K/uL (0.00-0.70); EOSINOPHILS % (AUTO) 2.9 % (0.0-8.0); HEMATOCRIT 39.4 % (36-48); IMMATURE GRANULOCYTE ABSOLUTE 1.13 K/uL (0-1); LYMPHOCYTES # (AUTO) 2.1 K/uL (1.0-4.8); LYMPHOCYTES % (AUTO) 12.5 % (21.0-51.0); MEAN CORPUSCULAR HEMOGLOBIN 31.7 pg (27.0-33.0); MEAN CORPUSCULAR HGB CONC 33.5 g/dL (32.0-36.0); MEAN CORPUSCULAR VOLUME 94.5 fL (79-99); MONOCYTES # (AUTO) 1.7 K/uL (0.1-1.0); MONOCYTES % (AUTO) 10.4 % (3.0-13.0); NEUTROPHILS # (AUTO) 10.9 K/uL (1.8-7.7); NEUTROPHILS % (AUTO) 66.6 % (40.0-77.0); PLATELET COUNT (AUTO) 511 K/uL (130-400); RED BLOOD CELL COUNT(AUTO) 4.17 MIL/uL (4.00-5.50); RED CELL DISTRIBUTION WIDTH 15.4 % (11.0-15.5); WHITE BLOOD COUNT (AUTO) 16.4 K/uL (4.8-10.8)
[2024-07-17 04:09] LABS: CREATININE 1.6 mg/dL (0.5-1.0); POTASSIUM 4.8 mmol/L (3.5-5.1)
[2024-07-17] MEDS ORDERED: FLUC200T12 PO (12:49)
[2024-07-17] MEDS ORDERED: LEVO250T75 PO (12:49)
[2024-07-17] MEDS ORDERED: APIX2.5T PO (12:49)
[2024-07-17] MEDS ORDERED: DOXY100T2 PO (12:50)
== END 2024-07-17 16:00 | disposition home or self-care (01) | DRG 308 ==
LOC: EDH 07:44 → EDHIP 08:55 → 4CH 10:35 → 2DH 07-07 12:45
PROVIDERS: ADMIT Internal Medicine; ATTEND Internal Medicine
PROC: 5A09357 Assistance with Respiratory Ventilation, Less than 24 Consecutive Hours, Continuous Positive Airway Pressure (ICD-10-PCS; principal; 2024-07-12)
PROC: 5A09357 Assistance with Respiratory Ventilation, Less than 24 Consecutive Hours, Continuous Positive Airway Pressure (ICD-10-PCS; 2024-07-13)
PROC: 5A09357 Assistance with Respiratory Ventilation, Less than 24 Consecutive Hours, Continuous Positive Airway Pressure (ICD-10-PCS; 2024-07-14)
DX: T82.111A Breakdown (mechanical) of cardiac pulse generator (battery), initial encounter (principal); A41.9 Sepsis, unspecified organism; J15.0 Pneumonia due to Klebsiella pneumoniae; J96.01 Acute respiratory failure with hypoxia; E87.1 Hypo-osmolality and hyponatremia; N18.4 Chronic kidney disease, stage 4 (severe); N17.9 Acute kidney failure, unspecified; J44.0 Chronic obstructive pulmonary disease with (acute) lower respiratory infection; E87.4 Mixed disorder of acid-base balance; E87.20 Acidosis, unspecified; I42.1 Obstructive hypertrophic cardiomyopathy; N39.0 Urinary tract infection, site not specified; Z20.822 Contact with and (suspected) exposure to COVID-19; E87.5 Hyperkalemia; E87.8 Other disorders of electrolyte and fluid balance, not elsewhere classified; E86.0 Dehydration; E78.5 Hyperlipidemia, unspecified; E87.6 Hypokalemia; G30.9 Alzheimer's disease, unspecified; F02.80 Dementia in other diseases classified elsewhere, unspecified severity, without behavioral disturbance, psychotic disturbance, mood disturbance, and anxiety; I25.10 Atherosclerotic heart disease of native coronary artery without angina pectoris; I48.0 Paroxysmal atrial fibrillation; K04.7 Periapical abscess without sinus; K76.89 Other specified diseases of liver; Y83.8 Other surgical procedures as the cause of abnormal reaction of the patient, or of later complication, without mention of misadventure at the time of the procedure; I12.9 Hypertensive chronic kidney disease with stage 1 through stage 4 chronic kidney disease, or unspecified chronic kidney disease; I25.2 Old myocardial infarction; Z88.1 Allergy status to other antibiotic agents; Z95.810 Presence of automatic (implantable) cardiac defibrillator; Z79.899 Other long term (current) drug therapy; Z79.01 Long term (current) use of anticoagulants; Y92.89 Other specified places as the place of occurrence of the external cause
CPT/HCPCS: 36415; 36600; 70450; 71045; 71250; 76700; 76770; 80048; 80053; 80074; 81001; 82010; 82140; 82435; 82436; 82570; 82803; 82947; 82948; 83605; 83735; 83880; 84100; 84132; 84133; 84145; 84295; 84300; 84443; 84484; 84550; 85018; 85025; 85027; 85378; 87040; 87071; 87086; 87186; 87205; 87426; 87641; 87804; 87880; 93005; 93306; 93356; 94640; 94660; 94664; 94760; 96375; 99291; G0378; J0696; J1450; J1815; J1940; J1956; J2060; J2270; J2405; J2919; J3411; J3475; J3490; J7070; Q0163